=== PATIENT | female | born 1990 | race Two or more races ===

== ENCOUNTER 2025-04-27 16:56 | Emergency (ER) | payer OTHER ==
[~2025-04-27] VITALS: Ht 167.6 cm; Wt 80.0 kg
[2025-04-27 17:23] VITALS: BP 149/108; PULSE 90; RESP 20; TEMP 99; O2SAT 98
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
== END 2025-04-27 17:28 | disposition left against medical advice (07) ==
LOC: EDBD 16:56 → ER 16:56
DX: M79.18 Myalgia, other site (principal); Z79.899 Other long term (current) drug therapy